=== PATIENT | male | born 1990 | race Caucasian/White ===

== ENCOUNTER 2019-08-18 02:25 | Emergency (ER) | payer MEDICAID ==
[~2019-08-18] VITALS: Ht 180.3 cm; Wt 81.6 kg
[2019-08-18 02:30] VITALS: BP_SYST 127
--- NOTE | 2019-08-18 02:38 | NUR ---
Placed in room 1 . Placed on hris analyst, blood pressure machine and pulse oximeter. To gown for exam. Side rails up. Report given to Anuj BARAHONA.
--- NOTE | 2019-08-18 02:50 | NUR ---
ER at bedside examining patient.
--- NOTE | 2019-08-18 02:50 | NUR ---
Pt brought in by ambulance. Pt confused and lethargic. Pt showing good respirations and no acute respiratory distress at this time. EMS states that patient was found in current condition, aloc. EMS states that a used needle was found with patient. Pt refusing care at this time, but unable to contract for his own safety, ar answer assesment questions appropriately. Vital signs stable
--- NOTE | 2019-08-18 02:57 | NUR ---
PT REFUSED IV INSERTION AND BLOOD DRAW.DR EASTON NOTIFED.
--- NOTE | 2019-08-18 03:00 | NUR ---
Pt re-interviewed. Pt awake, alert, oriented x4. Pt appears tired, disinterested and willfully not answering questions. Stating he wants to rest.
--- NOTE | 2019-08-18 04:08 | NUR ---
Pt has Ankle monitor present. ER staff questioned patient to see if someone needed to be called or informed of his hospitalization. Pt stated no.
--- NOTE | 2019-08-18 05:13 | NUR ---
Pt resting in ED bed. No distress.
--- NOTE | 2019-08-18 07:11 | NUR ---
BLOOD BEING DRAWN AT THIS TIME
[2019-08-18 07:45] LABS: BASOPHILS % (AUTO) 0.3 % (0.0-2.0); EOSINOPHILS % (AUTO) 0.1 % (0.0-4.0); HEMATOCRIT 46.3 % (36-54); HEMOGLOBIN 15.6 g/dL (14.0-18.0); LYMPHOCYTES # (AUTO) 0.8 K/uL (1.0-5.5); LYMPHOCYTES % (AUTO) 7.6 % (20.5-51.5); MEAN CORPUSCULAR HEMOGLOBIN 31 pg (27-31); MEAN CORPUSCULAR HGB CONC 34 % (32-36); MEAN CORPUSCULAR VOLUME 91 fL (79.0-98.0); MONOCYTES # (AUTO) 0.6 K/uL (0.0-1.0); MONOCYTES % (AUTO) 6.2 % (1.7-9.3); NEUTROPHILS # (AUTO) 8.9 K/uL (1.8-7.7); NEUTROPHILS % (AUTO) 85.8 % (40.0-70.0); PLATELET COUNT (AUTO) 208 K/uL (130-430); RED BLOOD CELL COUNT(AUTO) 5.07 MIL/uL (4.2-6.2); RED CELL DISTRIBUTION WIDTH 12.6 % (9.0-15.0); WHITE BLOOD COUNT (AUTO) 10.3 K/uL (4.8-10.8)
[2019-08-18 07:50] LABS: ANION GAP 6 (5-15); CALCIUM 8.9 mg/dL (8.4-11.0); CHLORIDE 104 mmol/L (98-107); CREATININE 0.89 mg/dL (0.55-1.30); GLUCOSE 110 mg/dL (70-99); POTASSIUM 4.1 mmol/L (3.5-5.1); SODIUM SERUM 139 mmol/L (136-145); UREA NITROGEN, BLOOD 16 mg/dL (8-21)
[2019-08-18 07:51] LABS: GFR AFRICAN AMERICAN 130 mL/min (>90)
[2019-08-18 08:06] LABS: ALANINE AMINOTRANSFERASE 22 U/L (12-78); ASPARTATE AMINOTRANSFERASE 18 U/L (10-37); TOTAL BILIRUBIN 1.5 mg/dL (0.0-1.0)
[2019-08-18 08:07] LABS: ACETAMINOPHEN < 1 ug/mL (1-30)
--- NOTE | 2019-08-18 10:00 | NUR ---
Patient given written and verbal discharge instructions and verbalizes understanding. ER MD discussed with patient the results and treatment provided. Patient in stable condition. ID arm band removed. Rx of none given. Patient educated on pain management and to follow up with PMD. Pain Scale . Opportunity for questions provided and answered. Medication side effect fact sheet provided.
[2019-08-18 19:07] VITALS: BP_SYST 112
== END 2019-08-18 10:00 | disposition home or self-care (01) ==
LOC: SED 02:25
DX: T40.1X1A Poisoning by heroin, accidental (unintentional), initial encounter (principal); Y92.89 Other specified places as the place of occurrence of the external cause
CPT/HCPCS: 36415; 80053; 85025; 99283; G0480; G0481